=== PATIENT | female | born 1960 | race Caucasian/White ===

== ENCOUNTER 2016-07-08 06:09 | Day surgery (SDC) | payer OTHER ==
[2016-07-08] VITALS (18 sets, daily range): BP systolic 99–133; BP diastolic 45–75; PULSE 60–78; RESP 13–25; Ht 162.6 cm; Wt 92.0 kg
[~2016-07-08] VITALS: Ht 162.6 cm; Wt 92.0 kg
[~2016-07-08 06:09] MED LIST: ATEN50TA PO; CRES10 PO; ESCI10TA PO; HYDR25TA6 PO; IPRA14.76 PO
[2016-07-08] MEDS ORDERED: SOD CHLORIDE 0.9% 1,000 ML IV SCH ×3 (07:00→09:04)
[2016-07-08 07:37] LABS: ADD SCAN DIFF NO
[2016-07-08 07:48] LABS: BASOPHIL # 0.1 10^3/ul (0.0-0.1); BASOPHILS % 0.6 % (0.0-2.0); EOSINOPHILS # 0.2 10^3/ul (0.0-0.5); EOSINOPHILS % 1.6 % (0.0-7.0); HEMATOCRIT 40.8 % (37.0-47.0); HEMOGLOBIN 13.6 g/dl (12.0-16.0); INR 0.81; LYMPHOCYTES # 3.6 10^3/ul (0.8-2.9); LYMPHOCYTES % 28.2 % (15.0-51.0); MEAN CORPUSCULAR HEMOGLOBIN 29.3 pg (29.0-33.0); MEAN CORPUSCULAR HGB CONC 33.3 g/dl (32.0-37.0); MEAN CORPUSCULAR VOLUME 87.9 fl (82.0-101.0); MEAN PLATELET VOLUME 11.1 fl (7.4-10.4); MONOCYTES % 7.7 % (0.0-11.0); NEUTROPHIL # 7.8 10^3/ul (1.6-7.5); PLATELET COUNT 205 10^3/UL (140-415); PROTIME 11.2 Sec (12.2-14.2); PT RATIO 0.9; RED BLOOD COUNT 4.64 10^6/ul (4.20-5.40); RED CELL DISTRIBUTION WIDTH 14.7 % (11.5-14.5); WHITE BLOOD COUNT 12.7 10^3/ul (4.8-10.8)
[2016-07-08 07:49] LABS: PARTIAL THROMBOPLASTIN TIME 25.5 Sec (25.0-35.0); POTASSIUM 3.6 mmol/L (3.5-5.1)
[2016-07-08 07:51] LABS: CREATININE 0.66 mg/dl (0.44-1.00)
[2016-07-08] MEDS ORDERED: METF-382 PO (07:55)
[2016-07-08] MEDS ORDERED: OMEP20CA16 PO (07:55)
[2016-07-08] MEDS ORDERED: HYDR-902 PO (07:55)
[2016-07-08] MEDS ORDERED: ATOR20TA38 PO (07:57)
[2016-07-08] MEDS ORDERED: ASPI-664 PO (07:57)
[2016-07-08] MEDS ORDERED: LIDOCAINE 1% (MDV) 20 ML INJ ONE (07:59)
[2016-07-08] MEDS ORDERED: GEMF600T60 PO (07:59)
[2016-07-08] MEDS ORDERED: IODIXANOL LOCM 100 ML BTL ONE (07:59)
[2016-07-08] MEDS ORDERED: HEPARIN 1000 UNITS/ML 10 ML INJ ONE (07:59)
[2016-07-08] MEDS ORDERED: NITROGLYCERIN (IC) 100 MCG/ML INJ ONE (08:00)
[2016-07-08] MEDS ORDERED: FAMOTIDINE 20 MG INJ IV SCH (08:00)
[2016-07-08] MEDS ORDERED: DIPHENHYDRAMINE 50 MG INJ ONE (08:00)
[2016-07-08] MEDS ORDERED: FENTAnyl 50 MCG/ML VIAL ONE (08:00)
[2016-07-08] MEDS ORDERED: VERAPAMIL 5 MG INJ ONE (08:00)
[2016-07-08] MEDS ORDERED: DIPHENHYDRAMINE 50 MG INJ IV SCH (08:00)
[2016-07-08] MEDS ORDERED: SOD CHLORIDE 0.9% 500 ML ONE (08:00)
[2016-07-08] MEDS ORDERED: MIDAZOLAM 1 MG/ML 2 ML INJ ONE (08:00)
--- NOTE | 2016-07-08 08:22 | RADRPT ---
PROCEDURE: XR Chest. CLINICAL INDICATION: Preoperative. Chest pain. TECHNIQUE: Single frontal view. COMPARISON: 06/24/2009. FINDINGS: There is mild right basilar atelectasis. The lungs are otherwise clear. The heart size is normal. There is no pleural effusion. There is no pneumothorax. IMPRESSION: 1. Mild right basilar atelectasis. 2. Otherwise normal chest x-ray. RPTAT: QQ .Renard Rutherford MD, MD Date Time Electronically viewed and signed by .Renard Rutherford MD, MD on 07/08/2016 08:22 .R/
--- NOTE | 2016-07-08 09:14 | PDOCDIS ---
Discharge Instructions CONDITION Patient Condition: Good HOME CARE INSTRUCTIONS: Diet Instructions: Low Fat /Cholesterol ACTIVITY: Activity Restrictions: Avoid heavy lifting (no lifting more then 5 pounds with right arm x 3 days) [address] (x 1 day) OTHER ORDERS: Other Orders: Hold metformin until 07/10/16 Aurelio Maher DO Jul 08, 2016 09:14
[2016-07-08] MEDS ORDERED: ACETAMINOPHEN 325 MG TAB PO PRN (09:30)
[2016-07-08] MEDS ORDERED: AL HYDROX/MG HYDROX/SIMETH 30 ML CUP PO PRN (09:30)
[2016-07-08] MEDS ORDERED: ONDANSETRON 4 MG INJ IV PRN (09:30)
[2016-07-08] MEDS ORDERED: SODIUM CL BACTERIOSTATIC 30 ML INJ ONE (10:21)
[2016-07-08] MEDS ORDERED: VANCOMYCIN 1 GM INJ ONE (10:22)
[2016-07-08] MEDS ORDERED: POLYMYXIN B 500000 UNIT INJ ONE (10:22)
--- NOTE | 2016-07-08 11:42 | CARRPT ---
DATE OF PROCEDURE: 07/08/2016 PROCEDURES: 1. Left heart catheterization. 2. Right and left coronary angiogram. 3. Interpretation and supervision of right and left coronary angiogram. 4. Left ventricular pressure measurements. 5. Right radial artery approach. PATIENT HISTORY: This is a 55-year-old female who presents with shortness of breath and chest pain with multiple risk factors and aortic disease. FINDINGS: HEMODYNAMICS: LV pressure 131/-1 with an EDP of 7. Aortic pressure 135/92. CORONARY FINDINGS: 1. Left main is a large caliber vessel with no significant disease. 2. Circumflex is a medium caliber vessel with distal 10% diffuse stenosis. 3. Ramus intermedius is a medium caliber vessel with distal 10% stenosis. 4. LAD is a medium caliber vessel with 10% diffuse mid stenosis. 5. RCA is a medium caliber vessel and is dominant with a mid- 10% stenosis. DESCRIPTION OF PROCEDURE: The patient was brought to the [facility] after informed consent. The jonny ent was prepped and draped as per protocol. Right radial access was obtained. A 5/6-[place] sheath was placed in the right radial artery. We initially used a 5-[place] JL3.5 diagnostic catheter and a ttempts to engage the left main. While doing so, this fell into the left ventricle and pressure dana surements were obtained as well as pullback. We were unable to cannulate the left main with a 3.5 J L. We next switched for a 6-[place] JL3.0 catheter. The left main was cannulated. Angiogram was pe rformed in the left system. We next switched for 5-[place] JR4 catheter and angiogram of the RCA was performed. All catheters and wires were removed. There were no immediate complications. DIAGNOSIS: Minimal nonobstructive epicardial coronary artery disease. COMPLICATIONS: None. ESTIMATED BLOOD LOSS: Minimal. RECOMMENDATIONS: Aggressive medical management. Smoking cessation. Dictated By: XIAO COMER/CORBIN Conf#: [id number] DID#: [id number]
--- NOTE | 2016-07-08 15:51 | RADRPT ---
Vent Rate: 61 bpm RR Interval: 0 msec SC Interval: 164 msec QRS Duration: 82 msec QT Interval: 400 msec QTC Interval: 402 msec P-R-T [place]: 64 - 66 - 66 degrees Normal sinus rhythm Normal ECG Electronically Signed By: Isak Alarcon [id number]
== END 2016-07-08 13:10 | disposition home or self-care (01) ==
LOC: SDS 06:09
PROVIDERS: ATTEND Internal Medicine Cardiovascular Disease
DX: I25.10 Atherosclerotic heart disease of native coronary artery without angina pectoris (principal); E11.9 Type 2 diabetes mellitus without complications; I10 Essential (primary) hypertension; E78.2 Mixed hyperlipidemia; Z87.891 Personal history of nicotine dependence
CPT/HCPCS: 71010; 80048; 85025; 85610; 85730; 93005; 93458; J1200; J1644; J2250; J3010; J3370; J7040; Q9967; Z7610; C1769; C1887